=== PATIENT | female | born 1995 | race Caucasian/White ===

== ENCOUNTER 2019-08-01 21:35 | Inpatient (IN) | payer OTHER ==
[2019-08-01] MEDS ORDERED: RHO D Immune Globulin (HUMAN) 1,500 I.U. SYRINGE IM ONE (22:48)
[2019-08-01] MEDS ORDERED: RHO D Immune Globulin (HUMAN)* 300 MCG = 1,500 I.U. INJ IM ONE (22:48)
[2019-08-01] MEDS ORDERED: Azithromycin TAB* 250 MG PO ONE (22:49)
[2019-08-01] MEDS ORDERED: Betamethasone INJ* 6 MG/ML 5 ML VIAL (30 MG) IM ONE (22:52)
[2019-08-01] MEDS ORDERED: Magnesium Sulf 4 GM/100 ML IV* 4,000 MG/100 ML BAG IVPB ONE (22:54)
[2019-08-01] MEDS ORDERED: Clindamycin 900 MG/D5W BAG(*) 900 MG/50 ML BAG IVPB SCH (23:00)
[2019-08-01 23:14] LABS: ABS Lymphocytes 1.4 10^3/ul (1.0-4.8); ABS Monocytes 0.9 10^3/ul (0-0.8); ABS Neutrophils 8.8 10^3/ul (1.5-7.7); Eosinophil % 0.3 %; Hematocrit 37 % (35-47); Hemoglobin 13.2 g/dL (12.0-16.0); Lymphocyte % 12.8 %; Mean Corpuscular HGB Conc 36 g/dL (31-36); Mean Corpuscular Hemoglobin 32 pg (27-31); Mean Corpuscular Volume 89 fL (80-97); Mean Platelet Volume 7.5 fL (7.4-10.4); Platelet Count 217 10^3/uL (150-450); Red Blood Count 4.14 10^6 /uL (3.70-4.87); Red Cell Distribution Width 13 % (10-15); White Blood Count 11.2 10^3/uL (3.5-10.8)
[2019-08-01] MEDS ORDERED: Gentamicin ADULT (*) 250 MG in NS 0.9% 100 ML* 100 ML IVPB ONE (23:30)
[2019-08-02] MEDS ORDERED: MAGNESIUM SULFATE ONE (00:18)
[2019-08-02] MEDS ORDERED: OBEPIDURAL* 250 ML EPIDURAL ONE (00:45)
[2019-08-02] MEDS ORDERED: Bupivacaine 0.25% SDV PF* 10 ML VIAL INJ ONE (00:57)
[2019-08-02] MEDS ORDERED: Sodium Citrate/Citric Acid* 15 ML UDC PO PRN (01:18)
[2019-08-02] MEDS ORDERED: Phenylephrine 40 MCG/ML SYRINGE IV PUSH PRN (01:18)
[2019-08-02] MEDS ORDERED: Famotidine TAB* 20 MG PO PRN (01:18)
[2019-08-02] MEDS ORDERED: EPHEDrine (Pressors)* 50 MG/ML VIAL IV PUSH PRN (01:18)
[2019-08-02] MEDS ORDERED: Lactated Ringers 1000 ML Bag* 1,000 ML IV ONE (01:18)
[2019-08-02] MEDS ORDERED: Oxytocin in LR* 0 UNITS/0 ML BAG IVPB ONE (01:50)
[2019-08-02] MEDS ORDERED: Lactated Ringers 1000 ML Bag* 1,000 ML IV SCH ×2 (02:00→03:00)
[2019-08-02] MEDS ORDERED: OBEPIDURAL* 250 ML EPIDURAL SCH (02:00)
[2019-08-02] MEDS ORDERED: RHO D Immune Globulin (HUMAN)* 300 MCG = 1,500 I.U. INJ IM ONE (02:05)
[2019-08-02] MEDS ORDERED: Measles, Mumps,Rubella VACC* 0.5 ML/VIAL SUBCUT ONE (02:05)
[2019-08-02] MEDS ORDERED: Acetaminophen TAB* 325 MG PO PRN (02:05)
--- NOTE | 2019-08-02 02:27 | HP ---
General Information - Reason for Visit premature rupture of membranes - General Information Maternal Age: 23 Grav: 1 Para: 0 SAB: 0 IEA: 0 Estimated Due Date: 10/02/19 Maternal Blood Type and Rh: O Negative - Results this Serology/RPR Result: Non-Reactive Rubella Result: Non-Immune HBsAg Result: Negative HIV Result: Negative Past Medical History Delivery History: See Records Pertinent Past Medical History: See Records Pertinent Past Surgical History: See Records Pertinent Family History: See Records - Antepartal Records Antepartal Records: Reviewed, Complicated by: - premature rupture of membranes and labor Review of Systems Constitutional: Uncomfortable CV Complaint: No Respiratory: Shortness of Breath: No Gastrointestinal: No Nausea/Vomiting Genitourinary: Leaking Fluid, No Dysuria, No Bleeding Musculoskeletal: No Complaint Neurological: No Headache Movement: Normal Exam Allergies/Adverse Reactions: Allergies amoxicillin Allergy (Mild, Verified 08/02/19 01:29) Swelling Penicillins Allergy (Mild, Verified 08/01/19 23:04) Rash Lab Values - Entire Visit: Laboratory Tests 08/01/19 08/01/19 08/01/19 22:09 23:00 23:00 WBC 11.2 H RBC 4.14 Hgb 13.2 Hct 37 MCV 89 MCH 32 H MCHC 36 RDW 13 Plt Count 217 MPV 7.5 Neut % (Auto) 78.5 Lymph % (Auto) 12.8 [place] % (Auto) 8.3 Eos % (Auto) 0.3 Baso % (Auto) 0.1 Absolute Neuts (auto) 8.8 H Absolute Lymphs (auto) 1.4 Absolute Monos (auto) 0.9 H Absolute Eos (auto) 0.0 Absolute Basos (auto) 0.0 Absolute Nucleated RBC 0.0 Nucleated RBC % 0.0 Vag Amniotic Fld Detect Positive Blood Type O Negative Antibody Screen Negative - Measurements Height: 5 ft 4 in Weight: 127 lb Weight in lbs: [phone] Body Mass Index (BMI): 21.8 Pre- Weight: 110 lb Weight Gained This : 17 lbs and 0 ozs - Exam Breast: Breast Exam Deferred CVA: No CVA Tenderness Extremities: No Edema Heart: Normal Rhythm/Heart Sounds HEENT: No Significant Findings Lungs: Clear Bilaterally Rectal: Rectal Exam Deferred Reflexes: DTR 2+ Thyroid: No Thyromegaly - Abdominal Exam Abdomen Exam: Non-Tender - Ultrasound/Biophysical Profile Ultrasound Status: Not Done Targeted Exam Findings Cervical Exam: 2cm Effacement: Complete Station: -1 Presenting Part: Vertex Membrane Status: Leaking Amniotic Fluid Evaluation: Gross Rupture, Positive ROM Plus EFM Findings - External Monitor Findings Baseline Heart Rate: 120 External Monitor Findings: Accelerations Present, No Pattern of Variable or Late Decelerations, Variability Moderate Contractions: Moderate Assessment/Plan - Assessment Pt 23 yo G1 at 31 1/7 weeks with late care and spontaneous rupture of membranes at 9 PM on 08/01/2019. Pt presented initially with no contractions but quickly has become more active and because of this transport to [facility] has been cancelled.Pt has received clindamycin/steroids and at his point will require epidural for anesthesia. - Obstetrical Risk Factors Obstetrical Risk Factors: GBS Unknown, - Plan Plan: Antibiotic Prophylaxis, Steroids, Mag Sulfate, Admit - Anticipate Vaginal Delivery
--- NOTE | 2019-08-02 02:40 | PROCNOTE ---
[facility] OB: Delivery Note - Delivery A Date of : 08/02/19 Time of : 01:53 [place] Sex: Female Weight at : 4 lb 3 oz Score 1 Minute: 8 Score 5 Minutes: 8 Gestational Age in Weeks and Days at Delivery: 31 Weeks and 2 Days Delivery Method: Spontaneous Vaginal Labor: Spontaneous Did Patient attempt ?: N/A, No Previous Amniotic Fluid: Clear Estimated Blood Loss: 200 Anesthesia/Analgesia: CEI for Labor, Other Delivered By: Jelani Campbell - Nursery Level of Nursery: NICU - Perineum Perineal Injury: Midline Episiotomy - repaird by Dr valentin / placenta delivered spontaneous villamentous insertion/ Perineal Repair: Dr Laxmi Valentin - Events Delivery Events of Note: Supplemental O2 to Mother, Tocolytics Given in Past 24 Hours - placenta delivered spontaneous/3vc/intact /villamentaous insertion/ culture obtained/ placenta to pathology, Steriods Given for Lung Maturity
[2019-08-02] MEDS ORDERED: Ibuprofen TAB* 600 MG PO SCH (03:00)
[2019-08-02] MEDS: Witch Hazel PAD* JAR TOPICAL PRN (03:34)
[2019-08-02] MEDS: Dibucaine 1% 28.35 GM TUBE PR PRN (03:34)
[2019-08-02] MEDS ORDERED: Acetaminophen ADULT LIQ* 650 MG/20.3 ML UDC PO PRN (03:39)
[2019-08-02] MEDS ORDERED: Ammonia Inhalant* 1 EA AMP ONE (05:54)
[2019-08-02] MEDS: Levothyroxine TAB* 125 MCG TAB PO SCH (06:42)
[2019-08-02] MEDS ORDERED: Lidocaine 1% INJ* 10 MG/ML 30 ML SDV ONE (06:50)
[2019-08-02] MEDS: Docusate CAP* 100 MG PO SCH ×2 (09:00→14:00)
[2019-08-02] MEDS: Ibuprofen ADULT LIQ* 600 MG/30 ML UDC PO PRN ×2 (10:34→19:56)
[2019-08-02 12:51] LABS: Chlamydia trachomatis NAA Negative (Negative); Neisseria gonorrhoeae (GC) NAA Negative (Negative)
[2019-08-03] MEDS: Docusate CAP* 100 MG PO SCH ×3 (01:21→16:27)
[2019-08-03 01:44] LABS: Urine Benzodiazepine Screen None Detected (None Detect); Urine Buprenorphine Screen None Detected (None Detect); Urine Hydrocodone Screen None Detected (None Detect); Urine Opiates Screen None Detected (None Detect)
[2019-08-03] MEDS: Ibuprofen ADULT LIQ* 600 MG/30 ML UDC PO PRN ×2 (07:18→21:04)
[2019-08-03] MEDS: Levothyroxine TAB* 125 MCG TAB PO SCH (07:19)
[2019-08-03 07:40] LABS: ABS Lymphocytes 1.7 10^3/ul (1.0-4.8); ABS Monocytes 0.8 10^3/ul (0-0.8); ABS Neutrophils 12.2 10^3/ul (1.5-7.7); Eosinophil % 0.1 %; Hematocrit 30 % (35-47); Hemoglobin 10.5 g/dL (12.0-16.0); Lymphocyte % 11.6 %; Mean Corpuscular HGB Conc 35 g/dL (31-36); Mean Corpuscular Hemoglobin 32 pg (27-31); Mean Corpuscular Volume 91 fL (80-97); Mean Platelet Volume 7.3 fL (7.4-10.4); Platelet Count 209 10^3/uL (150-450); Red Cell Distribution Width 13 % (10-15); White Blood Count 14.7 10^3/uL (3.5-10.8)
[2019-08-03 07:53] VITALS: BP 118/77
[2019-08-03] MEDS ORDERED: Ferrous Gluconate TAB* 324 MG TAB PO SCH (09:00)
[2019-08-03] MEDS: Dibucaine 1% 28.35 GM TUBE PR PRN (21:04)
[2019-08-03] MEDS: Witch Hazel PAD* JAR TOPICAL PRN (21:04)
== END 2019-08-04 00:10 | disposition home or self-care (01) | DRG 807 ==
LOC: MCHOBOUT 21:35 → MCHOB 08-02 00:27
PROVIDERS: ADMIT Obstetrics & Gynecology; ATTEND Obstetrics & Gynecology
PROC: 10E0XZZ Delivery of Products of Conception, External Approach (ICD-10-PCS; principal; 2019-08-02)
PROC: 0KQM0ZZ Repair Perineum Muscle, Open Approach (ICD-10-PCS; 2019-08-02)
PROC: 0W8NXZZ Division of Female Perineum, External Approach (ICD-10-PCS; 2019-08-02)
DX: O42.013 Preterm premature rupture of membranes, onset of labor within 24 hours of rupture, third trimester (principal); Z37.0 Single live birth; O70.1 Second degree perineal laceration during delivery; O99.284 Endocrine, nutritional and metabolic diseases complicating childbirth; E03.9 Hypothyroidism, unspecified; Z3A.31 31 weeks gestation of pregnancy
CPT/HCPCS: 36415; 80307; 84112; 85025; 85461; 86850; 86900; 86901; 87070; 87491; 87591; 88307; 90707; A9270-GY; G0480; J0702; J1580; J2790; J3475; J3490

== ENCOUNTER 2020-05-20 12:36 | Inpatient (IN) ==
[2020-05-20] MEDS ORDERED: Buffered Lidocaine 1% SYRIN 1 ml INTRADERM ONE (13:21)
[2020-05-20] MEDS ORDERED: Lactated Ringers 1000 ml BAG 1,000 ML IV ONE (13:21)
[2020-05-20] MEDS ORDERED: Clindamycin 900 MG/D5W BAG 900 MG/50 ML BAG IVPB ONE ×2 (13:28→13:55)
[2020-05-20] MEDS ORDERED: Gentamicin ADULT 300 MG in NS 0.9% 100 ml BAG 100 ML IVPB ONE (13:33)
[2020-05-20] MEDS ORDERED: NS 0.9% 100 ml BAG 100 ML ONE (13:52)
[2020-05-20 13:57] LABS: ABS Basophils 0.1 10^3/ul (0-0.2); ABS Monocytes 0.7 10^3/ul (0-0.8); ABS Neutrophils 10.8 10^3/ul (1.5-7.7); Eosinophil % 0.1 %; Hematocrit 37 % (35-47); Hemoglobin 12.2 g/dL (12.0-16.0); Lymphocyte % 8.1 %; Mean Corpuscular HGB Conc 34 g/dL (31-36); Mean Corpuscular Hemoglobin 28 pg (27-31); Mean Corpuscular Volume 82 fL (80-97); Mean Platelet Volume 8.3 fL (7.4-10.4); Platelet Count 210 10^3/uL (150-450); Red Blood Count 4.45 10^6 /uL (3.70-4.87); Red Cell Distribution Width 14 % (10-15); White Blood Count 12.6 10^3/uL (3.5-10.8)
[2020-05-20] MEDS ORDERED: Lactated Ringers 1000 ml BAG 1,000 ML IV SCH ×2 (14:00→16:00)
[2020-05-20] MEDS ORDERED: Ondansetron 4 mg VIAL 2 MG/ML 2 ml VIAL ONE (14:04)
[2020-05-20] MEDS ORDERED: fentaNYL 100 mcg/2 ml 50 MCG/ML VIAL ONE (14:04)
[2020-05-20] MEDS ORDERED: Morphine PF AMP (0.5MG/ML) 5 MG/10 ML AMP ONE (14:04)
[2020-05-20] MEDS ORDERED: Naloxone 0.4 mg VIAL 0.4 mg/ml 1 ml VIAL IV PRN ×2 (14:06→14:08)
[2020-05-20] MEDS ORDERED: Phenylephrine 40 mcg/mL 10mL (400mcg) SYRINGE ONE (14:06)
[2020-05-20] MEDS ORDERED: Ondansetron 4 mg VIAL 2 MG/ML 2 ml VIAL IV PRN ×2 (14:06→14:08)
[2020-05-20] MEDS ORDERED: HYDROmorphone 1 MG/1 ML SYRINGE IV PRN (14:08)
[2020-05-20] MEDS ORDERED: fentaNYL 100 mcg/2 ml 50 MCG/ML VIAL IV PRN (14:08)
[2020-05-20 14:09] LABS: Urine Benzodiazepine Screen None Detected (None Detect); Urine Cannabinoids Screen None Detected (None Detect); Urine Opiates Screen None Detected (None Detect)
[2020-05-20] MEDS ORDERED: Lidocaine 2% PF 10 ML AMP ONE (14:35)
[2020-05-20] MEDS ORDERED: HYDROmorphone 0.5 MG/0.5 ML SYRINGE IV PRN (14:38)
[2020-05-20] MEDS ORDERED: Oxytocin 10 UNITS/ML 1 ML VIAL ONE (14:51)
[2020-05-20] MEDS ORDERED: RHO D Immune Globulin (HUMAN) 300 MCG = 1,500 I.U. INJ IM PRN (15:45)
[2020-05-20] MEDS ORDERED: Witch Hazel PAD JAR TOPICAL PRN (15:45)
[2020-05-20] MEDS ORDERED: oxyCODONE 5 mg/5 ml ORAL.SOLN UDC PO PRN (16:45)
[2020-05-20] MEDS ORDERED: Metoclopramide 5 MG/ML VIAL (10 mg) IV ONE (17:06)
[2020-05-20] MEDS ORDERED: diPHENhydraMINE IV 50 MG/ML 1 ml VIAL (BENADRYL) IV ONE (17:06)
[2020-05-20] MEDS: Docusate LIQ 100 MG/10 ML UDC PO SCH (21:45)
[2020-05-21] MEDS ORDERED: oxyCODONE 5 mg/5 ml ORAL.SOLN UDC PO PRN ×2 (06:30)
[2020-05-21 06:32] LABS: ABS Lymphocytes 0.8 10^3/ul (1.0-4.8); ABS Monocytes 0.6 10^3/ul (0-0.8); ABS Neutrophils 8.1 10^3/ul (1.5-7.7); Eosinophil % 0.2 %; Hematocrit 30 % (35-47); Hemoglobin 9.9 g/dL (12.0-16.0); Lymphocyte % 8.7 %; Mean Corpuscular HGB Conc 33 g/dL (31-36); Mean Corpuscular Hemoglobin 28 pg (27-31); Mean Corpuscular Volume 83 fL (80-97); Mean Platelet Volume 7.4 fL (7.4-10.4); Platelet Count 164 10^3/uL (150-450); Red Blood Count 3.59 10^6 /uL (3.70-4.87); Red Cell Distribution Width 14 % (10-15); White Blood Count 9.6 10^3/uL (3.5-10.8)
[2020-05-21] MEDS: Docusate LIQ 100 MG/10 ML UDC PO SCH ×4 (08:43→21:19)
[2020-05-21] MEDS: Ibuprofen ADULT LIQ 600 MG/30 ML UDC PO PRN (17:54)
[2020-05-22] MEDS: Ibuprofen ADULT LIQ 600 MG/30 ML UDC PO PRN ×3 (01:19→21:53)
[2020-05-22] MEDS: Docusate LIQ 100 MG/10 ML UDC PO SCH ×3 (11:54→21:17)
[2020-05-23 08:00] VITALS: BP 112/68
[2020-05-23] MEDS: Ibuprofen ADULT LIQ 600 MG/30 ML UDC PO PRN ×2 (08:07→14:25)
[2020-05-23] MEDS: Docusate LIQ 100 MG/10 ML UDC PO SCH ×2 (08:20→14:10)
== END 2020-05-23 18:19 | disposition home or self-care (01) | DRG 788 ==
LOC: MCHOBOUT 12:36 → MCHOB 13:18
PROVIDERS: ADMIT Obstetrics & Gynecology; ATTEND Obstetrics & Gynecology